=== PATIENT | male | born 2000 | race Caucasian/White ===

== ENCOUNTER 2020-05-13 23:04 | Emergency (ER) | payer BC ==
[2020-05-13 23:18] VITALS: RESP 18
[2020-05-14] MEDS ORDERED: SODIUM CHLORIDE 0.9% 1,000 ML IV ONE (00:36)
--- NOTE | 2020-05-14 00:43 | ED ---
Syncope HPI - General Chief Complaint: Syncope Stated Complaint: Syncope Time Seen by Provider: 05/13/20 23:07 Source: patient, EMS Mode of arrival: EMS Limitations: no limitations - History of Present Illness Initial Comments: This patient is a 20-year-old man brought by ambulance to be evaluated after he had a syncopal episode at work. Patient states that he had been in confined space doing some spraying and had been kneeling down for maybe up to 1 hour. Patient states that when he finished he stood up and felt lightheaded and had a wave of nausea. He states that some coworkers noted and helped him to walk to a chair and then he had an episode where he passed out for a few seconds. Patient Did not experience any chest pain or palpitations. EMS was called and transported him here. He states that he is now back to his baseline. There was no headache or neck pain. No neurologic symptoms. No chest pain, dyspnea, diaphoresis or palpitations. He did have some nausea but no vomiting. No change in bowel movements or urination today. MD Complaint: loss of consciousness Onset/Timin -: hour(s) Prodromal Symptoms: lightheaded, nausea/vomiting -: second(s) Witnessed: yes - by bystander Injuries Sustained Associated with Event: None Current Symptoms: back to baseline Context: standing up Treatments Prior to Arrival: IV fluids - Related Data Allergies Allergy/AdvReac Type Severity Reaction Status Date / Time No Known Allergies Allergy Verified 05/14/20 00:47 Review of Systems ROS Statement: Those systems with pertinent positive or pertinent negative responses have been documented in the HPI. ROS Other: All systems not noted in ROS Statement are negative. Constitutional: Denies: fever, chills, weakness Eyes: Denies: vision change Respiratory: Denies: cough, dyspnea Cardiovascular: Reports: syncope. Denies: chest pain, palpitations, edema Gastrointestinal: Reports: nausea. Denies: abdominal pain, vomiting, diarrhea Genitourinary: Denies: dysuria, hematuria Musculoskeletal: Denies: back pain Skin: Denies: rash Neurological: Denies: headache, weakness, numbness, confusion Past Medical History Past Medical History: No Reported History History of Any Multi-Drug Resistant Organisms: None Reported Past Surgical History: No Surgical Hx Reported Past Psychological History: No Psychological Hx Reported Smoking Status: Current every day smoker Past Alcohol Use History: None Reported Past Drug Use History: None Reported General Exam Limitations: no limitations General appearance: alert, in no apparent distress Head exam: Present: atraumatic, normocephalic Eye exam: Present: normal appearance, PERRL, EOMI. Absent: scleral icterus, conjunctival injection, nystagmus ENT exam: Present: normal oropharynx Neck exam: Present: normal inspection, full ROM Respiratory exam: Present: normal lung sounds bilaterally. Absent: respiratory distress, wheezes, rales, rhonchi, stridor Cardiovascular Exam: Present: regular rate, normal rhythm, normal heart sounds. Absent: systolic murmur, diastolic murmur, rubs, gallop GI/Abdominal exam: Present: soft. Absent: distended, tenderness, guarding, rebound, rigid, mass Extremities exam: Present: normal inspection, normal capillary refill. Absent: pedal edema, calf tenderness Back exam: Present: normal inspection. Absent: CVA tenderness (R), CVA tenderness (L) Neurological exam: Present: alert, oriented X3, CN II-XII intact. Absent: motor sensory deficit Skin exam: Present: warm, dry, intact, normal color. Absent: rash Course Vital Signs 05/13/20 23:09 Temperature 98.0 F Pulse Rate 105 H Respiratory 18 Rate Blood Pressure 146/85 O2 Sat by Pulse 99 Oximetry EKG Findings - EKG Results: EKG: interpreted by SPENCER, sinus rhythm, normal QRS, normal ST/T EKG shows: tachycardia (Rate 107 bpm) - Blocks, [place], Hypertrophy, ST Abn: QRS axis and voltage: right axis deviation (+90 to +180) Medical Decision Making - Lab Data Result diagrams: 05/14/20 00:50 Lab Results 05/14/20 Range/Units 00:50 Sodium 141 (137-145) mmol/L Potassium 3.7 (3.5-5.1) mmol/L Chloride 107 (98-107) mmol/L Carbon Dioxide 25 (22-30) mmol/L Anion Gap 9 mmol/L BUN 12 (9-20) mg/dL Creatinine 1.03 (0.66-1.25) mg/dL Est GFR (CKD-EPI)AfAm >90 (>60 ml/min/1.73 sqM) Est GFR (CKD-EPI)NonAf >90 (>60 ml/min/1.73 sqM) Glucose 106 H (74-99) mg/dL Calcium 9.1 (8.4-10.2) mg/dL Disposition Clinical Impression: Syncope Disposition: HOME SELF-CARE Condition: Good Instructions (If sedation given, give patient instructions): Syncope (ED) Is patient prescribed a controlled substance at d/c from ED?: No Referrals: None,Stated [Primary Care Provider] - 1-2 days
[2020-05-14 01:03] LABS: African American GFR (CKD) >90 (>60 ml/min/1.73 sqM); Anion Gap 9 mmol/L; Blood Urea Nitrogen 12 mg/dL (9-20); Calcium 9.1 mg/dL (8.4-10.2); Carbon Dioxide 25 mmol/L (22-30); Chloride 107 mmol/L (98-107); Glucose 106 mg/dL (74-99); Non-African American GFR(CKD) >90 (>60 ml/min/1.73 sqM); Potassium 3.7 mmol/L (3.5-5.1); Sodium 141 mmol/L (137-145)
[2020-05-14 01:21] LABS: Basophils # (A) 0.1 k/uL (0-0.2); Basophils % (A) 0 %; Eosinophils # (A) 0.2 k/uL (0-0.7); Eosinophils % (A) 1 %; HCT 41.5 % (39.0-53.0); HGB 14.6 gm/dL (13.0-17.5); Lymphocytes # (A) 1.4 k/uL (1.0-4.8); Lymphocytes % (A) 8 %; MCH 29.9 pg (25.0-35.0); MCHC 35.1 g/dL (31.0-37.0); MCV 85.4 fL (80.0-100.0); Mean Platelet Volume 7.8; Monocytes # (A) 0.4 k/uL (0-1.0); Monocytes % (A) 2 %; Neutrophils # (A) 15.5 k/uL (1.3-7.7); Neutrophils % (A) 88 %; Platelet Count 213 k/uL (150-450); RBC 4.86 m/uL (4.30-5.90); RDW 11.9 % (11.5-15.5); WBC 17.7 k/uL (4.0-11.0)
[2020-05-14 01:51] VITALS: BP 125/63; PULSE 96; TEMP 98.1
== END 2020-05-14 01:51 | disposition home or self-care (01) ==
LOC: EC 23:04
DX: R55 Syncope and collapse (principal); R42 Dizziness and giddiness; F17.200 Nicotine dependence, unspecified, uncomplicated
CPT/HCPCS: 36415; 80048; 85025; 93005; 96360; 99284

== ENCOUNTER → 2020-10-25 | Outpatient (CLI) | payer OTHER ==
--- NOTE | 2020-10-25 13:58 | XR ---
EXAMINATION TYPE: XR cervical spine comp DATE OF EXAM: 10/25/2020 COMPARISON: None HISTORY: 20-year-old male slip and fall, cervical pain, S13.4XXA TECHNIQUE: 6 views FINDINGS: No significant bony neuroforaminal narrowing on either side. Reversal of the normal cervical lordosis with preserved alignment. No predental space widening or prevertebral soft tissue swelling. No acute fracture seen. T2 vertebral body projects above the clavicles. Findings may be seen in setting of dr oopy shoulder syndrome. Disc spaces are maintained. IMPRESSION: Reversal of normal cervical lordosis may be positional or due to muscle spasm. No malalignment or pre vertebral soft tissue swelling. T2 vertebral body projects above the clavicles. Findings have been de scribed in the setting of droopy shoulder syndrome and can be correlated clinically.
== END | disposition home or self-care (01) ==
LOC: RADXRMAIN 13:23
PROVIDERS: ATTEND Emergency Medicine
DX: S13.4XXA Sprain of ligaments of cervical spine, initial encounter (principal); W01.0XXA Fall on same level from slipping, tripping and stumbling without subsequent striking against object, initial encounter
CPT/HCPCS: 72050